=== PATIENT | female | born 1970 | race Caucasian/White ===

== ENCOUNTER → 2017-06-24 | Outpatient (CLI) | payer BC ==
--- NOTE | 2017-07-01 13:58 | HM ---
HOLTER MONITOR REPORT Patient was monitored for 24 hours. The baseline rhythm is a sinus mechanism with normal conduction. The average rate 88 beats per minute, minimum of 57, maximum 137 beats per minute. Ventricular ectopic active was present in the form of her rare single PVCs. Supraventricular ectopic activity was present in the form of rate single PACs. No symptoms were reported. CONCLUSION: 1. Sinus mechanism based on rhythm. 2. Rare ventricular ectopic activity. 3. Rare supraventricular ectopic activity. 4. No symptoms were reported. MMODL / IJN: [id number] /
== END | disposition home or self-care (01) ==
LOC: RADECHMAIN 10:27
PROVIDERS: ATTEND Family Medicine
DX: I49.3 Ventricular premature depolarization (principal)
CPT/HCPCS: 93225; 93226

== ENCOUNTER → 2017-08-25 | Outpatient (CLI) | payer BC ==
--- NOTE | 2017-08-26 10:09 | MM ---
Reason for exam: screening (asymptomatic). Last mammogram was performed 1 year and 4 months ago. History: Family history of breast cancer in paternal cousin. Took hormonal contraceptives for 10 years. Physical Findings: A clinical breast exam by your physician is recommended on an annual basis and results should be correlated with mammographic findings. MG Screening Mammo w CAD Bilateral CC and MLO view(s) were taken. Prior study comparison: April 17, 2016, left breast mammogram, performed at [facility]. April 15, 2016, bilateral mammogram, performed at [facility]. The breast tissue is heterogeneously dense. This may lower the sensitivity of mammography. There is no discrete abnormality. No significant changes when compared with prior studies. ASSESSMENT: Negative, BI-RAD 1 RECOMMENDATION: Routine screening mammogram of both breasts in 1 year.
== END | disposition home or self-care (01) ==
LOC: RADMAMWWP 08:03
PROVIDERS: ATTEND Obstetrics & Gynecology
DX: Z12.31 Encounter for screening mammogram for malignant neoplasm of breast (principal)
CPT/HCPCS: 77067

== ENCOUNTER → 2019-02-02 | Outpatient (CLI) | payer OTHER ==
--- NOTE | 2019-02-02 09:00 | MM ---
Reason for exam: screening (asymptomatic). Last mammogram was performed 1 year and 5 months ago. History: Family history of breast cancer in paternal cousin. Took hormonal contraceptives for 10 years. Physical Findings: A clinical breast exam by your physician is recommended on an annual basis and results should be correlated with mammographic findings. MG Screening Mammo w CAD Bilateral CC and MLO view(s) were taken. Prior study comparison: August 25, 2017, bilateral MG screening mammo w CAD. April 17, 2016, left breast mammogram, performed at [facility]. April 17, 2016, left breast ultrasound, performed at [facility]. April 15, 2016, bilateral mammogram, performed at [facility]. March 05, 2013, bilateral mammogram, performed at [facility]. The breast tissue is heterogeneously dense. This may lower the sensitivity of mammography. Finding: There are coarse heterogeneous, grouped/clustered calcifications in the outer quadrant, middle position. Focal asymmetry left outer aspect middle anterior depth. Increase in number of calcifications since August 25, 2017, March 05, 2013, April 17, 2016, April 17, 2016, and April 15, 2016. ASSESSMENT: Incomplete: need additional imaging evaluation, BI-RAD 0 RECOMMENDATION: Special view mammogram of both breasts. [facility] will attempt to contact patient to return for supplemental views.
== END | disposition home or self-care (01) ==
LOC: RADMAMWWP 06:53
PROVIDERS: ATTEND Family Medicine
DX: Z12.31 Encounter for screening mammogram for malignant neoplasm of breast (principal)
CPT/HCPCS: 77067

== ENCOUNTER → 2019-02-18 | Outpatient (CLI) | payer OTHER ==
--- NOTE | 2019-02-19 07:21 | MM ---
Reason for exam: additional evaluation requested from abnormal screening. Last mammogram was performed 1 month ago. History: Family history of breast cancer in paternal cousin at age 40. Physical Findings: Nurse did not find any significant physical abnormalities on exam. MG Work Up Mamm w CAD BILAT Bilateral CC with magnification and LM view(s) were taken. LM with magnification view(s) were taken of the right breast. Prior study comparison: February 02, 2019, bilateral MG screening mammo w CAD. August 25, 2017, bilateral MG screening mammo w CAD. The breast tissue is heterogeneously dense. This may lower the sensitivity of mammography. There is a 4mm group of right upper outer quadrant calcifications at middle depth that are heterogeneous and indeterminate, biopsy recommended. The previously seen abnormality resolves on additional views and appears as fibroglandular tissue compatible with summation. These results were verbally communicated with the patient and result sheet given to the patient on 02/18/19. ASSESSMENT: Suspicious, BI-RAD 4 RECOMMENDATION: Stereotactic core biopsy of the right breast. Called office with mammographic findings and has scheduled an appointment for the patient for 03/08/19 at 2:[address] Marie. Biopsy scheduled for 02/24/19 at 10:20. PRELIMINARY REPORT CALLED AND FAXED TO DR. MARIE ON 02/19/19.
== END | disposition home or self-care (01) ==
LOC: RADMAMWWP 13:55
PROVIDERS: ATTEND Family Medicine
DX: R92.8 Other abnormal and inconclusive findings on diagnostic imaging of breast (principal)
CPT/HCPCS: 77066

== ENCOUNTER → 2019-02-25 | Day surgery (SDC) | payer OTHER ==
[2019-02-25 13:10] VITALS: RESP 16; TEMP 97.6
[2019-02-25 15:04] VITALS: BP 121/73; PULSE 79
--- NOTE | 2019-02-25 15:35 | MM ---
EXAMINATION TYPE: MG stereo VAD BX RT DATE OF EXAM: 02/25/2019 COMPARISON: 02/18/2019 CLINICAL HISTORY: Right upper outer quadrant 4 mm group of calcifications for which stereotactic guided biopsy is recommended TECHNIQUE: Stereotactic guided core biopsy of right breast. FINDINGS: The procedure of stereotactic guided core biopsy was explained to the patient. Benefits, alternatives, and risks were discussed. An informed consent was then obtained. Preprocedural timeout was performed. The shortness pathway for biopsy was chosen. Shortness pathway was lateral to medial approach. Preprocedural localization images were obtained and the 4 mm group of calcifications in the upper outer quadrant of the right breast was demonstrated. Coordinates were calculated. Subsequently 10 cc of lidocaine without epinephrine was utilized to anesthetize the skin and deeper subcutaneous soft tissues. The needle was advanced to the appropriate depth. Prefire images were obtained ensuring appropriate location. Postfire images were obtained to ensure no movement of the calcifications after instillation of additional anesthetic. A vacuum assisted biopsy gun was used to obtain 7 core samples. The patient tolerated the procedure well without any immediate complication. The patient was kept in the radiology department for short stay after the procedure and then discharged home in stable condition. Targeted calcifications are identified in specimen mammogram. Post biopsy mammogram shows the T-shaped biopsy marker to appear in satisfactory position relative to the targeted area of concern on the preprocedure images without migration. IMPRESSION: SUCCESSFUL, UNCOMPLICATED STEREOTACTIC GUIDED CORE BIOPSY OF A 4 MM GROUP OF CALCIFICATIONS IN THE UPPER OUTER QUADRANT OF THE RIGHT BREAST, FULL PATHOLOGY RESULTS TO FOLLOW. 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 See Surgical Pathology Cancer Case Summary. Recommendation Surgical consult of the right breast. Definitive surgical/medical management (4mm group of calcifications). [facility]
== END ==
LOC: RADMAMWWP 12:39
PROVIDERS: ATTEND Family Medicine
DX: D05.11 Intraductal carcinoma in situ of right breast (principal); Z17.0 Estrogen receptor positive status [ER+]
CPT/HCPCS: 88305; 88342; 88341; 19081; A4648; J2001

== ENCOUNTER → 2019-03-08 | Outpatient (CLI) | payer OTHER ==
--- NOTE | 2019-03-08 16:43 | XR ---
EXAMINATION TYPE: XR chest 2V DATE OF EXAM: 03/08/2019 COMPARISON: NONE HISTORY: Preop TECHNIQUE: Frontal and lateral views of the chest are obtained. FINDINGS: There is no focal air space opacity, pleural effusion, or pneumothorax seen. The cardiac silhouette size is within normal limits. The osseous structures are intact. Postop changes are note d to the lumbar spine. IMPRESSION: No acute cardiopulmonary process.
== END | disposition home or self-care (01) ==
LOC: RADXRMAIN 15:08
PROVIDERS: ATTEND Family Medicine
DX: Z01.818 Encounter for other preprocedural examination (principal); C50.919 Malignant neoplasm of unspecified site of unspecified female breast
CPT/HCPCS: 71046

== ENCOUNTER 2022-06-11 16:34 | Emergency (ER) | payer OTHER ==
[2022-06-11 16:52] VITALS: PULSE 88
[2022-06-11] MEDS ORDERED: KETOROLAC 15 MG/ML 1 ML VIAL IM STA (16:52)
--- NOTE | 2022-06-11 16:54 | ED ---
Fall HPI - General Chief Complaint: Fall Stated Complaint: Leg pain Time Seen by Provider: 06/11/22 16:46 Source: patient Mode of arrival: wheelchair - History of Present Illness Initial Comments: Patient is a 51-year-old female who presents to the emergency department for right knee pain. Patient was getting off of her horse when she twisted right knee while stepping off and fell. Patient did not hit her head or lose consciousness. She does not use blood thinners. She does not have a headache or any neck pain. Patient has pain in the inside of her right knee which is s ignificantly worsened by ambulation. She denies numbness and tingling. She denies other injury. - Related Data Home Medications Medication Instructions Recorded Confirmed Cyclobenzaprine [Flexeril] 10 mg PO HS 02/19/19 02/25/19 rOPINIRole HCL [Requip] 2 mg PO HS 02/19/19 02/25/19 Previous Rx's Medication Instructions Recorded Ibuprofen [Motrin] 800 mg PO Q8HR PRN #30 tab 06/11/22 Allergies Allergy/AdvReac Type Severity Reaction Status Date / Time No Known Allergies Allergy Verified 06/11/22 16:41 Review of Systems ROS Statement: Those systems with pertinent positive or pertinent negative responses have been documented in the HPI. ROS Other: All systems not noted in ROS Statement are negative. Past Medical History Additional Past Medical History / Comment(s): restless leg syndrome History of Any Multi-Drug Resistant Organisms: None Reported Past Surgical History: Back Surgery, Section, Cholecystectomy, Ort hopedic Surgery Additional Past Surgical History / Comment(s): fused lumbar 2019, bilat elbow tedonitis , 3 back surgeries, Past Anesthesia/Blood Transfusion Reactions: Postoperative Nausea & Vomiting (PONV) Past Psychological History: No Psychological Hx Reported Smoking Status: Current every day smoker Past Alcohol Use History: None Reported Past Drug Use History: None Reported General Exam Limitations: no limitations General appearance: alert, in no apparent distress Head exam: Present: atraumatic, normocephalic, normal inspection Respiratory exam: Present: normal lung sounds bilaterally. Absent: respiratory distress, wheezes, rales, rhonchi, stridor Cardiovascular Exam: Present: regular rate, normal rhythm, normal heart sounds. Absent: systolic murmur, diastolic murmur, rubs, gallop, clicks Right Upper Leg exam: Present: normal inspection, full ROM. Absent: tenderness, swelling Knee exam: Present: full ROM, tenderness (medial ), swelling (mild), effusion (mild medial ), pain/laxity with valgus, full knee extension Lower Leg exam: Present: normal inspection, full ROM. Absent: tenderness, swelling Ankle exam: Present: normal inspection, full ROM. Absent: tenderness, swelling Foot/Toe exam: Present: normal inspection, full ROM. Absent: tenderness, swelling Neurovascular tendon exam: Present: no vascular compromise Gait: not tested/not observed Neurological exam: Present: alert, oriented X3, CN II-XII intact Psychiatric exam: Present: normal affect, normal mood Skin exam: Present: warm, dry, intact, normal color. Absent: rash Course Vital Signs 06/11/22 06/11/22 16:38 16:50 Temperature 97.5 F L Pulse Rate 87 88 Respiratory 20 16 Rate Blood Pressure 132/76 134/77 O2 Sat by Pulse 100 98 Oximetry Medical Decision Making - Medical Decision Making Was pt. sent in by a medical professional or institution (Dr. PA, [employer]ER, urgent care, hospital, or intermediate...) When possible be specific @ -No Did you speak to anyone other than the patient for history (EMS, parent, family, police, friend...)? What history was obtained from this source @ -No Did you review nursing and triage notes (agree or disagree)? Why? @ -I reviewed and agree with nursing and triage notes Were old charts reviewed (outside hosp., previous admission, EMS record, old EKG, old radiological studies, urgent care reports/EKG's, intermediate records)? Report findings @ -No old charts were reviewed Differential Diagnosis (chest pain, altered mental status, abdominal pain women, abdominal pain men, vaginal bleeding, weakness, fever, dyspnea, syncope, headache, dizziness, GI bleed, back pain, seizure, CVA, palpatations, mental health)? @ Knee fracture, knee sprain, contusion. This is not meant to be all-inclusive EKG interpreted by me (3pts min.). @ -As above X-rays interpreted by me (1pt min.). @ Yes, right knee x-ray shows no evidence of fracture. There is small joint effusion CT interpreted by me (1pt min.). @ -None done U/S interpreted by me (1pt. min.). @ -None done What testing was considered but not performed or refused? (CT, X-rays, U/S, labs)? Why? @ -None What meds were considered but not given or refused? Why? @ -None Did you discuss the management of the patient with other professionals (professionals i.e. Dr., PA, [employer] CLE[employer]ER, lab, RT, psych nurse, high school social science teacher, test carrier, teacher, airplane first officer, case assistant)? Give summary @ -No Was smoking cessation discussed for >3mins.? @ -No Was critical care preformed (if so, how long)? @ -No Were there social determinants of health that impacted care today? How? (Homelessness, low income, unemployed, alcoholism, drug addiction, transportation, low edu. Level, literacy, decrease access to med. care, half-way, rehab)? @ -No Was there de-escalation of care discussed even if they declined (Discuss DNR or withdrawal of care, Hospice)? DNR status @ -No What co-morbidities impacted this encounter? (DM, HTN, Smoking, COPD, CAD, Cancer, CVA, ARF, Chemo, Hep., AIDS, mental health diagnosis, sleep apnea, morbid obesity)? @ -None Was patient admitted / discharged? Hospital course, mention meds given and route, prescriptions, significant lab abnormalities, going to OR and other pertinent info. @ -Patient presenting with knee pain after twisting her right knee. There is mild knee effusion medially. Patient has full range of motion with increased pain during valgus stress and knee flexion. She is neurovascularly intact. X- ray shows no evidence of fracture there is small joint effusion. Patient placed in a knee immobilizer and given crutches. Sprain education provided in detail patient to follow-up with asset protection specialist Undiagnosed new problem with uncertain prognosis? @ -No Drug Therapy requiring intensive monitoring for toxicity (Heparin, Nitro, Insulin, Cardizem)? @ -No Were any procedures done? @ -No Diagnosis/symptom? @ -right knee sprain Acute, or Chronic, or Acute on Chronic? @ -acute Uncomplicated (without systemic symptoms) or Complicated (systemic symptoms)? @ -uncomplicated Side effects of treatment? @ -No Exacerbation, Progression, or Severe Exacerbation? @ -No Poses a threat to life or bodily function? How? (Chest pain, [place], AR, pneumonia, PE, COPD, DKA, ARF, appy, cholecystitis, CVA, Diverticulitis, Homicidal, Suicidal, threat to staff... and all critical care pts) @ -No Dr. Camargo is my attending Disposition Clinical Impression: Right knee sprain Disposition: HOME SELF-CARE Condition: Good Instructions (If sedation given, give patient instructions): Knee Sprain (ED) Additional Instructions: Rest and elevate the joint as much as possible. Ice the injury for the next 24- 48 hours. If symptoms continue after, apply warm compress. Take Tylenol or Motrin as needed for pain. Keep knee immobilizer on and use crutches.Do not bear weight until orthopedic evaluation. Follow-up with asset protection specialist in 1 to 2 days. Return to the emergency department if you experience new, concerning, or worsening symptoms. Prescriptions: Ibuprofen [Motrin] 800 mg PO Q8HR PRN #30 tab PRN Reason: Pain Is patient prescribed a controlled substance at d/c from ED?: No Referrals: None,Stated [Primary Care Provider] - 1-2 days Memo Muse DO [Doctor of Osteopathic Medicine] - 1-2 days
--- NOTE | 2022-06-11 17:35 | XR ---
EXAMINATION TYPE: XR knee complete RT DATE OF EXAM: 06/11/2022 5:04 PM INDICATION: Patient age:Female; 51 years old; Reason for study: twist injury; COMPARISON: None. TECHNIQUE: The Right knee(s) was examined in Frontal, lateral and oblique projections. FINDINGS: No evidence of any acute osseous pathology, soft tissue swelling, with a small joint effu juan is noted. IMPRESSION: 1. No acute osseous pathology. Consider MRI for complete evaluation of soft tissues. 2. Small joint effusion
[2022-06-11 18:01] VITALS: BP 138/82; RESP 18; TEMP 97.8
== END 2022-06-11 17:59 | disposition home or self-care (01) ==
LOC: EC 16:34
DX: S83.91XA Sprain of unspecified site of right knee, initial encounter (principal); F17.200 Nicotine dependence, unspecified, uncomplicated; V80.010A Animal-rider injured by fall from or being thrown from horse in noncollision accident, initial encounter; X50.1XXA Overexertion from prolonged static or awkward postures, initial encounter
CPT/HCPCS: 73562; 99283; 96372; J1885

== ENCOUNTER 2022-07-25 07:42 | Day surgery (SDC) | payer OTHER ==
[2022-07-22 17:33] VITALS: BMI 28.6
[~2022-07-25 07:42] MED LIST: ACETAMINOPHEN TAB 500 MG TAB PO PRN; DEXAMETHASONE SOD PHOSPHATE 4 MG/ML 1 ML VIAL IV ONE; GABAPENTIN 300 MG CAP PO PRN; HYDROmorphone 0.5 MG/0.5 ML SYRINGE IVP PRN; LACTATED RINGERS 1,000 ML IV SCH; LIDOCAINE 1% (10MG/ML) FOR IV START INTRADERMA PRN; ONDANSETRON 4 MG/2 ML VIAL IVP ONE; ONDANSETRON 4 MG/2 ML VIAL IVP PRN; Pre Op ABX Message 1 EACH MISC MISCELLANE ONE; TRANEXAMIC ACID IN NACL,ISO-OS 1,000 MG in SALINE 1 100ML.BAG IVPB PRN; droPERidol 5 MG/2 ML VIAL IVP ONE
[2022-07-25] MEDS ORDERED: SCOPOLAMINE 1 MG/72 HR PATCH TRANSDERM ONE (08:32)
[2022-07-25] MEDS ORDERED: MIDAZOLAM 2 MG/2 ML VIAL IVP ONE (08:46)
[2022-07-25] MEDS ORDERED: fentaNYL (PF) 50 MCG/ML 2 ML AMP IVP ONE (08:46)
--- NOTE | 2022-07-25 09:02 | P.ANPRN ---
Procedure Note - Anesthesia - Nerve Block Performed Right Adductor Canal Single Time Out Performed: Yes ([id number]) Date of Procedure: 07/25/22 Procedure Start Time: 08:47 Procedure Stop Time: 08:51 Location of Patient: PreOp Indication: Acute Post-Operative Pain, Requested by Surgeon Specifically requested for management of pain by DrCharlie: August Rodarte Sedation Type: Sedate with meaningful contact maintained Preparation: Sterile Prep Position: Supine Catheter: None Needle Types: Pajunk Needle Gauge: 21 Ultrasound used to visualize needle placement: Yes Ultrasound used to observe medication spread: Yes Injectate: 0.5% Ropivacaine (see comment for volume) (30CC) Blood Aspirated: No Pain Paresthesia on Injection Noted: No Resistance on Injection: Normal Image Stored and Saved: Yes Events: Uneventful and Well Tolerated
[2022-07-25] MEDS ORDERED: SUCCINYLCHOLINE CHLORIDE 200 MG/10 ML VIAL IV ONE (09:48)
[2022-07-25] MEDS ORDERED: LIDOCAINE 2% INJ 20 MG/ML (2 ML VIAL) ONE (09:48)
[2022-07-25] MEDS ORDERED: ROPIVACAINE 5 MG/ML 30 ML VIAL ONE (09:48)
[2022-07-25] MEDS ORDERED: fentaNYL (PF) 50 MCG/ML 2 ML AMP ONE (09:48)
[2022-07-25] MEDS ORDERED: PROPOFOL 10 MG/ML 20 ML VIAL IV ONE (09:48)
[2022-07-25] MEDS ORDERED: HYDROmorphone (PF) 1 MG/ML ONE (09:48)
[2022-07-25] MEDS ORDERED: MIDAZOLAM 2 MG/2 ML VIAL ONE (09:48)
[2022-07-25] MEDS ORDERED: SODIUM CHLORIDE 0.9% 50 ML with ceFAZolin 2,000 MG IV ONE ×2 (10:15)
[2022-07-25] MEDS ORDERED: BUPIVACAINE (PF) 0.25% 30 ML VIAL SQ ONE (10:52)
[2022-07-25] MEDS ORDERED: LACTATED RINGERS 1,000 ML IV ONE (11:02)
[2022-07-25] MEDS ORDERED: ceFAZolin 1,000 MG in SODIUM CHLORIDE 0.9% 1,000 ML IRRIGATION ONE (11:04)
[2022-07-25 12:21] VITALS: TEMP 98
[2022-07-25] MEDS ORDERED: HYDROcodone/APAP 7.5-325MG 1 EACH TAB ONE (13:33)
--- NOTE | 2022-07-25 13:41 | OP ---
OPERATIVE REPORT DATE OF SERVICE : 07/25/2022 PREOPERATIVE DIAGNOSES: 1. Right knee anterior cruciate ligament rupture. 2. Right knee lateral meniscus tear. 3. Right knee medial meniscus tear. POSTOPERATIVE DIAGNOSES: 1. Right knee anterior cruciate ligament rupture. 2. Right knee lateral meniscus tear. 3. Right knee medial meniscus tear. PROCEDURES PERFORMED: 1. Right knee anterior cruciate ligament reconstruction with hamstring autograft. 2. Right knee arthroscopic partial medial meniscectomy. 3. Right knee arthroscopic partial lateral meniscectomy. TOP EXECUTIVE: Stanley Gonzáles PA-C ANESTHESIA: General endotracheal. ESTIMATED BLOOD LOSS: Minimal. TOURNIQUET TIME: 58 minutes at 250 mmHg. DRAINS: None. COMPLICATIONS: None apparent. DISPOSITION: Postanesthesia care unit. INDICATIONS: Grisel is a very pleasant 52-year-old female, who injured her right knee when she fell off a horse. Physical examination and MRI are consistent with a complete rupture of the anterior cruciate ligament, medial meniscus tear, and lateral meniscus tear. She also had spraining of the medial collateral ligament. We did delay the surgery to allow the medial collateral ligament to tighten up. I had a long discussion with her with regard to treatment options. At this point, she does wish to proceed with operative intervention. Risks were explained to the patient, which include, but are not limited to risk of infection, nerve damage, bleeding, pain, instability, and deep vein thrombosis, which could lead to fatal pulmonary embolism and graft re-rupture. The patient understands these risks and wishes to proceed with surgical procedure. FINDINGS: Examination under anesthesia: Range of motion: Right, full; left, full. Effusion: Right, mild; left, none. Marielena: Right, increased 5 mm soft endpoint; left, normal with good endpoint. Pivot shift; right, grade 1; left, grade 0. Posterior drawer: Right, normal with good endpoint; left, normal with good endpoint. Varus laxity: Right, none; left, none. Valgus laxity: Right, none; left, none. External rotation: Right, normal; left, normal. Arthroscopic findings: Superior pouch was normal. Medial gutter, normal; lateral gutter, normal. Patella normal. Chondral surfaces and trochlea, normal chondral surfaces. Patellar tracking is normal. Medial femoral condyle, normal. Chondral surfaces of medial tibial plateau, normal. Chondral surfaces of medial meniscus, macerated complex tear of the posterior horn middle body of the medial meniscus. It was a completely displaced flap tear. Lateral femoral condyle, normal chondral surfaces. Lateral tibial plateau, normal chondral surfaces. Lateral meniscus, a small flap tear just anterior to the posterior root attachment of the lateral meniscus. Anterior cruciate ligament, incomplete midsubstance rupture of the anterior cruciate ligament. Posterior cruciate ligament, normal. DESCRIPTION OF PROCEDURE: The patient was identified in the preoperative holding area. Surgical site was marked by both patient and myself. She was given 2 g of Ancef IV for prophylactic purposes. She was then transported to the operative suite. She was placed supine on the operating table. General anesthetic was then administered, dosed per the Anesthesia without apparent complication. Examination under anesthesia was performed of both knees. The findings were noted above. The tourniquet was then placed high on the right upper thigh well-padded in preparation for surgery. The patient's right lower extremity was then prepped and draped in usual sterile fashion. Standard surgical pause was undertaken to ensure that we were operating the correct site and appropriate preoperative antibiotics were given. All staff in the room were in agreement and we proceeded. The knee was then insufflated with 120 mL of sterile saline solution. This was done to gradually distend the joint. Standard inferolateral portal was then made. A 30-degree arthroscope was introduced into the suprapatellar pouch. The arthroscopic pump pressure was set to 60 mmHg and maintained at that level throughout the entire case. Next, utilizing an 18-gauge spinal needle to topically localize the placement, an inferomedial portal was made under direct visualization. A standard diagnostic arthroscopy of the knee was then performed. The findings were noted above. Attention was first drawn to the inferior notch. She had a complete rupture of the anterior cruciate ligament. The remnants of the anterior cruciate ligament were anteriorly in the notch. These were debrided with a synovial shaver. Attention was drawn to the lateral compartment. She had a small flap tear in the posterior horn of the lateral meniscus. This was just anterior to the posterior root attachment. The tear was completely displaced. This tear was deemed to be repairable. This tear was debrided with a combination of biter and synovial shaver back to stable tissue. Approximately 75% of the posterior horn of the lateral meniscus remained intact after debridement. The middle body and the anterior horn were pristine without any evidence of tearing. Attention was drawn to the medial compartment. She had an extremely macerated tear of the posterior horn and middle body of the medial meniscus. There was a large flap tear, which was completely displaced. This tear was deemed to be repairable. This tear was then debrided with a combination of biter and synovial shaver back to stable tissue. Approximately 25% of the posterior horn of the medial meniscus remained intact after debridement. The anterior and posterior root attachments were carefully inspected and found to be intact. At this point, we proceeded with harvesting of the hamstring tendons for autograft. The arthroscope was removed from the knee. The leg was then exsanguinated with an Esmarch dressing. The tourniquet was then inflated to 250 mmHg. A small longitudinal incision was then made approximately 1.5 cm medial to the tibial tubercle. Dissection was carried down through the subcutaneous tissues until the sartorius tendon was identified. The sartorius was incised using an L-shaped incision. The sartorius tendon was then retracted, and gracilis and semitendinosus tendons were identified. These tendons were then tagged with 2-0 Vicryl sutures. The tendons were then released from their insertion onto the tibia and stripped of their soft tissue attachments using a blunt technique as well as using scissors. The tendon was then harvested using a closed tendon stripper. The tendons were then taken to the back table, where muscle fibers were scraped off the tendons. The ends of the tendons were then whipstitched using a #2 Orthocord suture. The tendon was then doubled to form a 4- strand hamstring graft. The graft diameter was measured at 8 mm. The surgical assistant certified was critical at this portion of the case. They provided adequate exposure to safely harvest the hamstring tendons. In addition, the curriculum assistant completed the graft preparation allowing for decreased operating time further enhancing the safety of the procedure. Attention was then returned to the knee. The remaining remnants of the anterior cruciate ligament were then debrided utilizing arthroscopic shaver. The Garcias ACL guide was then placed into the knee with the tip held flush against the lateral wall of the notch. The knee was then brought into full extension and the tibial guide pin was drilled from the anteromedial tibia into the knee. The knee was then flexed and the pin positioned arthroscopically assessed to ensure it was in the proper position. The tibial tunnel was then created using a cannulated reamer equil to the size of the hamstring graft, which was 8 mm. A minimal lateral wall notchplasty was then performed utilizing synovial shaver in a vaibhav-type fashion. The femoral origin of the anterior cruciate ligament was clearly identified. The femoral guide pin was then placed at the origin of the anterior cruciate ligament with a planned back wall thickness of 1 mm. The femoral tunnel was then created with a cannulated reamer to the depth of 20 mm. The size of reamer was again same size of the hamstring graft, which was 8 mm. Next, a 4.5 mm cannulated drill was used to penetrate the lateral femoral cortex. The [employer] ToggleLoc femoral fixation device was then opened. The graft was placed through the closed loop of the device. A Beath pin was then placed through the tibial and femoral tunnels and out through the soft tissues of the lateral thigh. The lead sutures of the fixation device were then placed in the eyelet of the fixation device and advanced through the tunnels and soft tissues of the lateral thigh. The device was then advanced through the tunnels and locked on the lateral femoral cortex. The closed loop was then shortened and the graft advanced to the base of the femoral tunnel. Femoral fixation was excellent. The graft was then cycled 30 times. No impingement was noted on the intercondylar roof or lateral intercondylar wall. Tibial fixation was then achieved using a bioabsorbable Intrafix screw and sheath. This was performed at 20 degrees of flexion with a posterior drawer force applied to the tibia. This resulted in excellent fixation. The arthroscope was placed back in the knee and the graft again visualized. Tension of the graft seemed to be excellent. No impingement was noted. Full range of motion noted. The Marielena test was noted to be normal. At this point, the arthroscopic equipment was removed from the knee. The tourniquet was deflated. Total tourniquet time for the procedure was 58 minutes at 250 mmHg. The tibial incision was then thoroughly irrigated. Next, the sartorius was closed with 2-0 Vicryl interrupted suture. The subcutaneous tissue was closed with 2-0 Vicryl interrupted suture and the skin was closed with 3-0 nylon interrupted suture. The arthroscopic portals were closed with 3-0 nylon interrupted suture. Sterile compressive dressing was then applied. The patient was placed in a hinged knee brace, locked in full extension. The patient tolerated the procedure well and was transferred to the recovery room in good condition. REHAB PLAN: Routine anterior cruciate ligament reconstruction rehab protocol. SOCO / ENEDELIA: [id number] /
[2022-07-25 14:00] VITALS: BP 99/68; PULSE 88; RESP 14
== END 2022-07-25 14:28 | disposition home or self-care (01) ==
LOC: OR 07:42
PROVIDERS: ATTEND Orthopaedic Surgery Sports Medicine
DX: S83.511A Sprain of anterior cruciate ligament of right knee, initial encounter (principal); S83.231A Complex tear of medial meniscus, current injury, right knee, initial encounter; S83.281A Other tear of lateral meniscus, current injury, right knee, initial encounter; G89.18 Other acute postprocedural pain; V80.010A Animal-rider injured by fall from or being thrown from horse in noncollision accident, initial encounter; G25.81 Restless legs syndrome; F10.20 Alcohol dependence, uncomplicated; Z87.891 Personal history of nicotine dependence; Z85.3 Personal history of malignant neoplasm of breast; Z79.899 Other long term (current) drug therapy
CPT/HCPCS: 29888; 29880; 64447; J2250; J1100; J2405; J0690; J3010